=== PATIENT | male | born 1985 | race Two or more races ===

== ENCOUNTER → 2016-05-22 | Day surgery (SDC) | payer OTHER ==
[~2016-05-22] MED LIST: LOPID600 MG; OMEPRAZOLE20 M1 PO; [UNRECOGNIZED DRUG - OTHER]
--- NOTE | ~2016-05-22 | OR ---
Unit #: [id number] #: [id number] Patient: VIOLETA LUNA [id number] [address] [place], [place] [address] [id number] MR#: [id number] NAME: VIOLETA LUNA ROOM: Date of Procedure: 05/22/2016 Admission Date: 05/22/2016 Surgeon: Salvador Swift M.D. : 1985 Attending Physician: Salvador Swift M.D. Primary Care Physician: Salvador Swift M.D. OPERATIVE REPORT PRIMARY CARE PHYSICIAN Krishna Greer M.D. and MERY Quintanilla PREOPERATIVE DIAGNOSES The patient presented with history of epigastric pain, dyspepsia, and retrosternal ascending heartburn. He also tells me that he had an endoscopy done in [facility] that showed H Pylori and he was treated that with antibiotics. PROCEDURES PERFORMED Upper gastrointestinal endoscopy and biopsy. POSTOPERATIVE DIAGNOSES Completely normal examination up to third part of duodenum. A biopsy obtained from the antrum for CLOtest. RECOMMENDATIONS The results of CLOtest to be followed up in the office. The patient will continue omeprazole in meantime. SEDATION USED MAC. DESCRIPTION OF PROCEDURE Following detailed explanation of the potential risks and complications of an upper endoscopy, namely perforation, bleeding, and complications related to sedation, the patient was brought to GI lab and laid in the left lateral decubitus position. Lubricated tip of the Olympus video upper endoscope was passed through the bite block into the proximal esophagus under direct vision. The entire esophageal mucosa was examined and appeared normal. Z-line was nicely demarcated, there being no esophagitis or hiatus hernia. The scope was then advanced into the gastric cavity and the latter was insufflated. Mucosa of the fundus, body, and antrum examined and appeared unremarkable. Pylorus was intubated with visualization of the normal duodenal bulb and second and third part of the duodenum. Upon withdrawal and retroflexion, incisura, cardia, and greater curve examined and no additional findings noted. A biopsy obtained from the antrum for CLOtest. The scope was withdrawn in the distal esophagus. The entire esophageal mucosa was examined all the way up to pharynx. No additional findings noted. The patient tolerated the procedure without any postprocedure complications. Unit #: [id number] #: [id number] Patient: VIOLETA LUNA Dictated by..Angel Silva/hema TD: 05/22/2016 08:34 JOB #: [id number] CC: Krishna Greer M.D. OPERATIVE REPORT Page 1 of 1 X Salvador Swift MD X PROCEDURE OPERATIVE NOTE
== END | disposition home or self-care (01) ==
LOC: COPS 06:14
DX: R10.13 Epigastric pain (principal); E78.00 Pure hypercholesterolemia, unspecified; K21.9 Gastro-esophageal reflux disease without esophagitis; Z79.899 Other long term (current) drug therapy; Z98.890 Other specified postprocedural states
CPT/HCPCS: 87077; J2250